=== PATIENT | male | born 1960 | race Caucasian/White ===

== ENCOUNTER 2016-03-10 21:02 | Emergency (ER) | payer MEDICAID ==
[2016-03-10 21:10] VITALS: BP 137/73; PULSE 77; RESP 16; TEMP 97.7; O2SAT 93
--- NOTE | 2016-03-10 21:20 | EDPHY ---
H & P Stated Complaint: fell out of bed this morning, c/o L collar bone & sternal pain Time Seen by Provider: 03/10/16 21:12 - Personal History Current Tetanus/Diphtheria Vaccine: Yes Current Tetanus Diphtheria and Acellular Pertussis (TDAP): Yes Tetanus Vaccine Date: 2014 - Medical/Surgical History Hx Asthma: No Hx Chronic Respiratory Disease: No Hx Diabetes: No Hx Cardiac Disease: No Hx Renal Disease: No Hx Cirrhosis: No Hx Alcoholism: Yes Hx HIV/AIDS: No Hx Splenectomy or Spleen Trauma: No Other PMH: ETOH abuse, anxiety. Hep C, Hernia repair, Above the knee right leg amp - Social History Smoking Status: Never smoked Constitutional: Initial Vital Signs Temperature (C) 36.5 C 03/10/16 21:08 Heart Rate 77 03/10/16 21:08 Respiratory Rate 16 03/10/16 21:08 Blood Pressure 137/73 H 03/10/16 21:08 O2 Sat (%) 93 03/10/16 21:08 O2 Delivery Mode Room Air Allergies/Adverse Reactions: No Known Allergies Allergy (Verified 03/10/16 21:05) Home Medications: Medication Instructions Recorded Cymbalta 12/10/15 GABAPENTIN 12/10/15 Gabapentin [Neurontin 300 MG (*)] 1,200 mg PO TID #20 cap 12/10/15 Meloxicam 12/10/15 Seroquel 12/10/15 Medical Decision Making ED Course/Re-evaluation: CHIEF COMPLAINT: Collar bone pain HISTORY OF PRESENT ILLNESS: The patient is a 56 y/o male complaining of left collar bone and sternal pain secondary to rolling out of bed and falling last night. He has a history of right leg amputation and anxiety and was last seen in the ED in December for a medication refill. He has no other acute complaints today. He denies weakness or paresthesias. He did not strike his head or lose consciousness. REVIEW OF SYSTEMS: A 10 point review of systems was performed and is negative with the exception of the elements mentioned in the history of present illness. PHYSICAL EXAM: HR, BP, O2 Sat, RR. Temp noted General Appearance: Alert, well hydrated, appropriate, and non-toxic appearing. Head: Atraumatic without scalp tenderness or obvious injury Eyes: Pupils equal, round, reactive to light and accommodation, EOMI, no trauma , no injection. Ears: Clear bilaterally, no perforation, normal landmarks Nose: Atraumatic, no rhinorrhea, clear. Throat: There is no erythema or exudates, no lesions, normal tonsils, mucus membranes moist. Neck: Supple, 2+ carotid upstroke, nontender, no lymphadenopathy. Respiratory: No retractions, no distress, no wheezes, and no accessory muscle use. Lungs are clear to auscultation bilaterally. Cardiovascular: Regular rate and rhythm, no murmurs, rubs, or gallops. Bilateral carotid, radial, dorsalis pedis, and posterior tibial pulses intact. Good capillary refill all extremities. Gastrointestinal: Abdomen is soft, nontender, non-distended, no masses, no rebound, no guarding, no peritoneal signs. Musculoskeletal: Normal active ROM of all extremities, atraumatic. Neurological: Alert, appropriate, and interactive. The patient has normal DTRs and non-focal cranial nerves, motor, sensory, and cerebellar exam. Skin: No rashes, good turgor, no nodules on palpation. Past medical history: anxiety, hepatitis Past surgical history: AKA right leg amputation Family history: Noncontributory Social history: PCP [facility] DIAGNOSTICS/PROCEDURES/CRITICAL CARE TIME: Study: Chest x-ray Indication: Pain, trauma Results: Chest x-ray was obtained. The results of the study are negative for fracture or pneumothorax. Radiologist report pending. I viewed the images myself on the PACS system. DIFFERENTIAL DIAGNOSIS: The differential diagnosis for the patient's trauma included but was not limited to rib fracture, pneumothorax, chest wall contusion , clavicle fracture. MEDICAL DECISION MAKING: This is a 56 y/o male with 13 previous ED visits in the last year presenting with left clavicle pain secondary to rolling out of bed over 12 hours ago. He is neurovascularly intact and there are no objective findings to explain his pain on exam. Plan for chest x-ray to rule out fracture or pneumothorax. Chest x-ray negative. Patient will be discharged with script for Canalou and recommendation to follow up with his PCP for persistent symptoms. He is comfortable with this plan. Return precautions given. Patient reports he cannot take Canalou or Tylenol. He can use ibuprofen as directed on the packaging if needed for pain. - Data Points Medications Given: Discontinued Medications Acetaminophen/Hydrocodone Bitart (Canalou 5/325mg Prepack#6) 1 btl TAKEHOME EDNOW ONE Stop: 03/10/16 21:42 Last Admin: 03/10/16 22:02 Dose: Not Given Departure - Departure Disposition: Home, Routine, Self-Care Clinical Impression: Pain of left clavicle Contusion of left clavicle Qualifiers: Encounter type: initial encounter Qualifier Code: (S40.012A) Contusion of left shoulder, initial encounter Fall Qualifiers: Encounter type: initial encounter Qualifier Code: (W19.XXXA) Unspecified fall, initial encounter Instructions: Contusion in Adults (ED) Additional Instructions: Apply ice to sore areas. Follow up with your primary care provider for symptoms not improved over the next 2-3 days. Referrals: [facility] [Outside] - As per Instructions Report Scribed for: Abel Brooks Report Scribed by: Jesika Shine Date of Report: 03/10/16 Time of Report: 21:33
--- NOTE | 2016-03-10 21:46 | DX ---
AP chest x-ray 2128 hours. History: Sternal and left-sided clavicular pain after fall earlier today. Shortness of breath. Findings: Comparison to September 12, 2015. Heart size and pulmonary vasculature remain within normal limits. There are some bands of atelectasis suspected at the left lung base. There is no consolidation, effusion, or pneumothorax. There are gale e degenerative changes at the AC joint bilaterally. No new osseous abnormality is appreciated. Impression: 1. Subsegmental atelectasis suspected at the left base. 2. No acute osseous abnormality seen on single AP view of the chest.
[2016-03-10] MEDS: HYDROCOD/APAP 5/325 PREPACK#6 BTL TAKEHOME ONE ×2 (21:56→22:02)
== END 2016-03-10 22:07 | disposition home or self-care (01) ==
DX: S49.92XA Unspecified injury of left shoulder and upper arm, initial encounter (principal); S40.012A Contusion of left shoulder, initial encounter; W06.XXXA Fall from bed, initial encounter